=== PATIENT | female | born 2005 | race Two or more races ===

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

== ENCOUNTER 2024-03-24 08:56 | Emergency (ER) | payer MEDICAID ==
[~2024-03-24] VITALS: Ht 157.5 cm; Wt 74.1 kg
[~2024-03-24 08:56] MED LIST changes: +ONDA-243 PO
[2024-03-24 09:43] LABS: BILIRUBIN,URINE NEGATIVE (Neg); CLARITY,URINE SLIGHTLY CLOUDY (Clear); COLOR,URINE YELLOW (Yellow); GLUCOSE, URINE NEGATIVE (Neg); KETONES,URINE NEGATIVE (Neg); LEUKOCYTE ESTERASE ,URINE SMALL (Neg); NITRITES, URINE NEGATIVE (Neg); OCCULT BLOOD,URINE LARGE (Neg); PROTEIN,URINE NEGATIVE (Neg); UROBILINOGEN,URINE 0.2 E.U/dL (0.2-1.0)
[2024-03-24 09:44] LABS: URINE HCG NEGATIVE (NEG)
[2024-03-24 09:49] LABS: BACTERIA,URINE 1+ /HPF (Neg); RBC,URINE TNTC /HPF (0-2); SQUAMOUS EPITHELIAL CELL,UR FEW /LPF (FEW); UA COLLECTION TYPE CLN CATCH MIDSTREAM
[2024-03-24 09:50] LABS: MUCUS STRANDS NONE SEEN /LPF (Neg)
[2024-03-24] MEDS ORDERED: CEPH-585 PO (10:01)
[2024-03-24] MEDS ORDERED: PHEN-716 PO (10:01)
[2024-03-24 10:05] VITALS: BP 122/64; PULSE 76; RESP 16; TEMP 97.7; O2SAT 99
== END 2024-03-24 10:06 | disposition home or self-care (01) ==
LOC: ER 08:57
DX: N39.0 Urinary tract infection, site not specified (principal); K21.9 Gastro-esophageal reflux disease without esophagitis; Z88.1 Allergy status to other antibiotic agents; Z88.2 Allergy status to sulfonamides; Z79.899 Other long term (current) drug therapy
CPT/HCPCS: 81001; 81025; 87088; 99283

== ENCOUNTER 2024-09-28 10:16 | Emergency (ER) | payer MEDICAID ==
[~2024-09-28] VITALS: Ht 157.5 cm; Wt 87.7 kg
[~2024-09-28 10:16] MED LIST changes: +LIDO-52 TOP; -LIDO700A32 TOP; +PHEN-716 PO
[2024-09-28 10:39] VITALS: BP 119/85; PULSE 74; RESP 18; TEMP 97.1; O2SAT 98
--- NOTE | 2024-09-28 10:48 | Physician Documentation ---
History of Present Illness ~ Chief Complaint: Bite-insect Stated Complaint: SPIDER BITE Time Seen by MD: 10:43 OK to notify your PCP?: Yes Primary Medical Doctor: DR. PEDROZA Source: patient Mode of Arrival: POV Exam Limitations: no limitations HPI 19-year-old female with small approximately 3 cm circular area of redness where she was bitten by a black identified spider last night. She states that the redness is starting to spread outside of the marked area which she marked on her leg last night. She has no fevers, nausea vomiting or diarrhea. Tetanus within 5 years?: Yes Medication Reconciliation Allergies: Coded Allergies: azithromycin (Verified Allergy, Unknown, 09/28/24) sulfamethoxazole (Verified Allergy, Unknown, 09/28/24) trimethoprim (Verified Allergy, Unknown, 09/28/24) Scheduled Lidocaine (Lidoderm), 1 PATCH TOP DAILY Omeprazole (Omeprazole), 1 TAB PO DAILY Phenazopyridine HCl (Pyridium), 1 TAB PO Q8H Scheduled PRN ONDANSETRON ODT 4mg tablet (Ondansetron Odt), 1 TABLET PO Q6H PRN for nausea/vomiting Past Medical History Past Medical History: GERD, *INFECTIOUS DZ* Past Surgical History: no surgical history Alcohol Use: None Drug Use: none Lives with: Mother Lives In: Home Occupation: student, child Review of Systems All Other Systems at this time: Reviewed and Negative Physical Exam Vital Signs: RN Vital Signs have been reviewed: Yes, Temperature: 97.1, Source: Oral, Heart Rate: 74, Respiratory Rate: 18, BP: 119/85, Pulse Oximetry: 98, Weight: 87.650 Pulse Oximetry Reflects: adequate oxygenation Physical Exam General: Alert, no distress. HEENT: No injection, moist mucous membranes. Neck: Full range of motion. Respiratory: No respiratory distress, equal chest rise and fall. Chest: No accessory muscle use. Cardiovascular: Regular rate and rhythm. Gastrointestinal: Nondistended. Extremities: Normal range of motion, no deformity. Neurologic: Oriented x4. Psychiatric: Normal mood and affect. Skin: Normal color, warm and dry. Circular area of erythema, tenderness and warmth approximately 3 cm circular to left gonzalez just below the knee. Progress Results/Orders Reviewed/noted all lab results: Yes Results/Orders Vital Signs 09/28/24 10:39 Temp 97.1 Pulse 74 Resp 18 B/P (MAP) 119/85 Pulse Ox 98 Medical Decision Making Additional info obtained from: old records Findings She has a localized the area of likely cellulitis to her left gonzalez which started last night after being bitten by a black unidentified spider. Physical exam is unremarkable the sides the area of redness. Vital signs are stable. He is with the redness has spread outside of the premarked area from last night and she is worried about an infection. I prescribed doxycycline sent to her pharmacy. She can use [id number] medications for pain relief and was given follow up and return instructions. Differential Dx:Considerations: Include: Allergic reaction, Neurovascular injury, Punture wound, Retained foreign body Departure Disposition: HOME / SELF CARE / HOMELESS Impression: Primary Impression: Cellulitis Discharge Instructions: Cellulitis, Adult Additional Instructions: Follow up with her primary care provider within the next week and return back here for any new or worsening symptoms. Referrals: NO PRIMARY CARE PROVIDER (PCP) Prescriptions Doxycycline Monohydrate (Doxycycline Monohydrate) 100 Mg Capsule 1 CAP PO Q12H for 7 Days, #14 CAP Prov: BHAVNA DUMONT 09/28/24 Education Educated: Patient Educated regarding: diagnosis, treatment, prognosis, need for follow up Additional Comment Medical Screen Exam This patient recieved a medical screening examination. After reviewing the individual's medical complaints with presenting symptoms and performing an appropriate physical examination, it was determined that no immediate life- threatening emergency medical condition is present. This individual is also not a women having contractions. Signature Scribe Signature: . Attestation: Scribed for Emergency,Department by Bhavna Patel NP . 09/28/24 10:52 Parts of this note were created using [employer] voice recognition software program. While efforts were made to correct any mistakes made by this voice recognition software program, nonsensical phrases may remain in this note. In addition, there may be errors and syntax, grammar, content and spelling. BHAVNA DUMONT Sep 28, 2024 10:48
[2024-09-28] MEDS ORDERED: DOXY100C43 PO (10:50)
== END 2024-09-28 11:30 | disposition home or self-care (01) ==
LOC: ER 10:16
DX: L03.116 Cellulitis of left lower limb (principal); Z88.1 Allergy status to other antibiotic agents; Z88.2 Allergy status to sulfonamides
CPT/HCPCS: 99283